=== PATIENT | female | born 1955 | race Caucasian/White ===

== ENCOUNTER 2017-08-16 08:05 | Day surgery (SDC) | payer BC ==
[~2017-08-16 08:05] MED LIST: LACTATED RINGERS 1,000 ML IV SCH
[2017-08-16 08:42] VITALS: RESP 16; TEMP 98.6
[2017-08-16] MEDS ORDERED: LIDOCAINE 1% 20 ML VIAL (10MG/ML) FOR IV START INTRADERMA ONE (08:47)
[2017-08-16] MEDS ORDERED: PROPOFOL 10 MG/ML 20 ML VIAL IV ONE (08:47)
--- NOTE | 2017-08-16 08:57 | P.GSHP ---
History of Present Illness H&P Date: 08/16/17 Chief Complaint: Colon cancer screening Patient here today for colonoscopy. She has not had one previously. She has a sister who has colon polyps. Denies rectal bleeding or melena. No change in bowel habits. Past Medical History Past Medical History: GERD/Reflux History of Any Multi-Drug Resistant Organisms: None Reported Past Surgical History: Adenoidectomy, Cholecystectomy, Tonsillectomy Additional Past Surgical History / Comment(s): SINUS. REMOVAL OF LEAD IN RIGHT HAND. Past Anesthesia/Blood Transfusion Reactions: No Reported Reaction Past Psychological History: No Psychological Hx Reported Smoking Status: Former smoker Past Alcohol Use History: Rare Additional Past Alcohol Use History / Comment(s): SMOKED FOR A COUPLE, QUIT ABOUT 20 YRS, LESS THAN 1PP. Past Drug Use History: None Reported Medications and Allergies Home Medications Medication Instructions Recorded Confirmed Type Aspirin [Adult Low Dose Aspirin EC] 81 mg PO DAILY 08/13/17 08/16/17 History Ibuprofen [Motrin] 200 - 400 mg PO Q6H PRN 08/13/17 08/16/17 History Lisinopril 40 mg PO QAM 08/13/17 08/16/17 History Simvastatin Unknown Dose 1 tab PO HS 08/13/17 08/16/17 History Allergies Allergy/AdvReac Type Severity Reaction Status Date / Time adhesive Allergy Rash/Hives Verified 08/16/17 08:38 Penicillins Allergy Swelling Verified 08/16/17 08:38 Surgical - Exam Vital Signs Temp Pulse Resp BP Pulse Ox 98.6 F 95 16 140/81 97 08/16/17 08:41 08/16/17 08:41 08/16/17 08:41 08/16/17 08:41 08/16/17 08:41 Physical exam: General: Well-developed, well-nourished HEENT: Normocephalic, sclerae nonicteric Abdomen: Nontender, nondistended Extremities: No edema Neuro: Alert and oriented Assessment and Plan (1) Colon cancer screening Narrative/Plan: Will proceed with colonoscopy today. Risks of bleeding and perforation discussed. Current Visit: Yes Status: Acute Code(s): Z12.11 - ENCOUNTER FOR SCREENING FOR MALIGNANT NEOPLASM OF COLON SNOMED Code(s): 167644785
--- NOTE | 2017-08-16 09:15 | P.PCN ---
Date of Procedure: 08/16/17 Procedure(s) Performed: PREOPERATIVE DIAGNOSIS: Colon cancer screening POSTOPERATIVE DIAGNOSIS: Sigmoid colon polyp PROCEDURE: Colonoscopy with biopsy ANESTHESIA: MAC SURGEON: Nirmal Pierre M.D. SPECIMENS: Polyp ENDOSCOPIC PROCEDURE: The patient was placed on the endoscopy table in the left decubitus position. The Olympus colonoscope was inserted into the anus and passed under direct visualization to the base of the cecum. The appendiceal orifice was visualized. From that point the scope was slowly withdrawn inspecting all surfaces carefully. There were no neoplastic inflammatory or polypoid lesions throughout the cecum, ascending, transverse, and descending colon. In the sigmoid colon a small polyp was identified and removed using the cold biopsy forceps. The remainder of the sigmoid and rectum appeared normal. There was no visible diverticulosis seen. Digital rectal examination was normal. The patient was taken to the recovery room in stable condition per anesthesia guidelines. RECOMMENDATIONS: Await biopsy results to determine the timing of the next colonoscopy.
[2017-08-16 09:40] VITALS: BP 128/86; PULSE 78
== END 2017-08-16 09:58 | disposition home or self-care (01) ==
LOC: ORWHC2ENDO 08:05
PROVIDERS: ATTEND Surgery
DX: Z12.11 Encounter for screening for malignant neoplasm of colon (principal); K63.5 Polyp of colon; K21.9 Gastro-esophageal reflux disease without esophagitis; Z83.71 Family history of colonic polyps; Z87.891 Personal history of nicotine dependence; Z79.82 Long term (current) use of aspirin; Z79.899 Other long term (current) drug therapy; Z88.0 Allergy status to penicillin
CPT/HCPCS: 88305; 45380; J2704

== ENCOUNTER → 2019-02-19 | Outpatient (CLI) | payer BC ==
--- NOTE | 2019-02-19 12:32 | BD ---
EXAMINATION TYPE: Axial Bone Density DATE OF EXAM: 02/19/2019 COMPARISON: 07.04.2016 CLINICAL HISTORY: 63 YR OLD FEMALE...ICD-10 CODE: M85.9 DISORDER OF BONE postmenopausal female. Tru ght: 62.4 Weight: 266 FRAX RISK QUESTIONS: NOTHING TO NOTE HERE RISK FACTORS HISTORY OF: Postmenopausal woman: YES AT AGE 55 MEDICATIONS: Additional Medications: BP MEDS, STATIN FOR CHOLESTEROL Additional History: HYPERTENSION, CHOLESTEROL EXAM MEASUREMENTS: Bone mineral densitometry was performed using the [employer]. Bone mineral density as measured about the Lumbar spine is: ----- L1-L4(G/cm2): 1.254 T Score Values are as follows: ----- L1: -1.1 ----- L2: 0.6 ----- L3: 1.4 ----- L4: 1.1 ----- L1-L4: 0.6 Bone mineral density has: Increased 3.0% since study of: 07.04.2016 Bone mineral density about the R hip (g/cm2): 1.125 Bone mineral density about the L hip (g/cm2): 1.096 T Score values are as follows: -----R Neck: -1.1 -----L Neck: -1.6 -----R Total: 0.9 -----L Total: 0.7 Bone mineral density has: Decreased -0.4% since study of: 07.04.2016 FRAX%s: THERE IS A 7.2% CHANCE FOR A MAJOR OSTEOPOROTIC FX AND A 0.6% FOR HIP.....PROBABILITY FOR FX IN 10 YRS TIME IMPRESSION: Osteopenia (T Score between -2.5 and -1) remains present femoral neck level both hips. There remains slightly increased risk of fracture and the patient may be considered for treatment. Re-Screen 2-5 years. NOTE: T-SCORE=SD OF THE YOUNG ADULT MEAN.
--- NOTE | 2019-02-20 11:35 | MM ---
Reason for exam: screening (asymptomatic). Last mammogram was performed 2 years and 8 months ago. History: Patient is postmenopausal and is nulliparous. Physical Findings: A clinical breast exam by your physician is recommended on an annual basis and results should be correlated with mammographic findings. MG Screening Mammo w CAD Bilateral CC and MLO view(s) were taken. Prior study comparison: June 21, 2016, bilateral MG screening mammo w CAD. May 15, 2013, bilateral digital screening mammo w/CAD. There are scattered fibroglandular densities. There is no discrete abnormality. No significant changes when compared with prior studies. ASSESSMENT: Negative, BI-RAD 1 RECOMMENDATION: Routine screening mammogram of both breasts in 1 year.
== END | disposition home or self-care (01) ==
LOC: RADMAMWWP 10:00
PROVIDERS: ATTEND Internal Medicine
DX: Z12.31 Encounter for screening mammogram for malignant neoplasm of breast (principal); M85.851 Other specified disorders of bone density and structure, right thigh; M85.852 Other specified disorders of bone density and structure, left thigh
CPT/HCPCS: 77067; 77080

== ENCOUNTER → 2020-09-16 | Outpatient (CLI) | payer BC ==
--- NOTE | 2020-09-20 12:29 | MM ---
Reason for exam: screening (asymptomatic). Last mammogram was performed 1 year and 7 months ago. History: Patient is postmenopausal and is nulliparous. Family history of breast cancer in sister at age 55. Physical Findings: A clinical breast exam by your physician is recommended on an annual basis and results should be correlated with mammographic findings. MG 3D Screening Mammo W/Cad Bilateral CC and MLO view(s) were taken. Prior study comparison: June 21, 2016, bilateral MG screening mammo w CAD. The breast tissue is almost entirely fat. No significant changes when compared with prior studies. ASSESSMENT: Benign, BI-RAD 2 RECOMMENDATION: Routine screening mammogram of both breasts in 1 year.
== END | disposition home or self-care (01) ==
LOC: RADMAMWWP 09:31
PROVIDERS: ATTEND Internal Medicine
DX: Z12.31 Encounter for screening mammogram for malignant neoplasm of breast (principal)
CPT/HCPCS: 77063; 77067

== ENCOUNTER → 2021-07-04 | Outpatient (CLI) | payer BC ==
--- NOTE | 2021-07-04 23:18 | BD ---
EXAMINATION TYPE: Axial Bone Density DATE OF EXAM: 07/04/2021 COMPARISON: NONE CLINICAL HISTORY: Height: 63 Weight: 267.6 FRAX RISK QUESTIONS: Alcohol (3 or more units per day): no Family History (Parent hip fracture): no Glucocorticoids (More than 3mos): no (Ex: prednisone, prednisolone, methylprednisolone, dexamethasone, and hydrocortisone). History of Fracture in Adulthood: no Secondary Osteoporosis: 1. Type 1 Diabetes: no 2. Hyperthyroidism: no 3. Menopause before 45: no 4. Malnutrition: no 5. Chronic liver disease: no Rheumatoid Arthritis: no Current Tobacco Use: no RISK FACTORS HISTORY OF: Surgery to Spine/Hip(right/left)/Wrist (right/left): no Family History of Osteoporosis: no Active: sometimes Diet low in dairy products/other sources of calcium: no Postmenopausal woman: yes Lost more than 2 inches in height since high school: no MEDICATIONS: lisinopril, simvastatin, calcium, baby aspirin Additional History: EXAM MEASUREMENTS: Bone mineral densitometry was performed using the [employer]. Bone mineral density as measured about the Lumbar spine is: ----- L1-L4(G/cm2): 1.255 T Score Values are as follows: ----- L2: -0.4 ----- L3: 1.0 ----- L4: 0.9 ----- L1-L4: 0.6 Bone mineral density has: decreased -4.4 % since study of: 02.19.2019 Bone mineral density about the R hip (g/cm2): 0.889 Bone mineral density about the L hip (g/cm2): 0.888 T Score values are as follows: -----R Neck: -1.0 -----L Neck: -1.1 -----R Total: 1.2 -----L Total: 0.8 Bone mineral density has: increased 2.3 % since study of: 02.19.2019 IMPRESSION: Osteopenia (T Score between -2.5 and -1). There is slightly increased risk of fracture and the patient may be considered for treatment. Re-Screen 2-5 years. NOTE: T-SCORE=SD OF THE YOUNG ADULT MEAN.
== END | disposition home or self-care (01) ==
LOC: RADBDWWP 16:19
PROVIDERS: ATTEND Obstetrics & Gynecology
DX: M85.88 Other specified disorders of bone density and structure, other site (principal); Z78.0 Asymptomatic menopausal state
CPT/HCPCS: 77080

== ENCOUNTER → 2021-09-05 | Outpatient (CLI) | payer BC ==
--- NOTE | 2021-09-06 07:44 | US ---
EXAMINATION TYPE: US carotid duplex BILAT DATE OF EXAM: 09/05/2021 COMPARISON: NONE CLINICAL HISTORY: I65.23 OCCLUSION AND STENOSIS OF BILATERAL CAROTID. EXAM MEASUREMENTS: RIGHT: Peak Systolic Velocity (PSV) cm/sec ----- Right CCA: 97.0 ----- Right ICA: 113.5 ----- Right ECA: 67.9 ICA/CCA ratio: 1.2 RIGHT: End Diastole cm/sec ----- Right CCA: 23.6 ----- Right ICA: 41.3 ----- Right ECA: 12.2 LEFT: Peak Systolic Velocity (PSV) cm/sec ----- Left CCA: 88.6 ----- Left ICA: 85.6 ----- Left ECA: 133.3 ICA/CCA ratio: 1.0 LEFT: End Diastole cm/sec ----- Left CCA: 26.9 ----- Left ICA: 27.4 ----- Left ECA: 23.4 VERTEBRALS (direction of flow): Right Vertebral: Antegrade Left Vertebral: Antegrade Rhythm: Normal No significant stenosis IMPRESSION: No evidence for hemodynamically significant stenosis. Criteria for Assigning % of Stenosis / Diameter reduction (Estimation based on the indirect measurements of the internal carotid artery velocities (ICA PSV). 1. Normal (no stenosis)=ICA PSV < 125 cm/s: ratio < 2.0: ICA EDV<40 cm/s. 2. Less than 50% stenosis=ICA PSV < 125 cm/s: ratio < 2.0: ICA EDV<40 cm/s. 3. 50 to 69% stenosis=ICA PSV of 125 to 230 cm/s: ration 2.0 ? 4.0: ICA EDV 40-100 cm/s. 4. Greater than 70% stenosis to near occlusion= ICA PSV > 230 cm/s: ratio > 4.0: ICA EDV > 100 cm/s. 5. Near occlusion= ICA PSV velocities may be low or undetectable: variable ratio and ICA EDV. 6. Total occlusion=unable to detect flow.
== END | disposition home or self-care (01) ==
LOC: RADUSWWP 16:19
PROVIDERS: ATTEND Internal Medicine
DX: I65.23 Occlusion and stenosis of bilateral carotid arteries (principal)
CPT/HCPCS: 93880

== ENCOUNTER → 2021-09-26 | Outpatient (CLI) | payer BC ==
--- NOTE | 2021-09-26 11:47 | CT ---
EXAMINATION TYPE: CT urogram wo/w con DATE OF EXAM: 09/26/2021 INDICATION: Abnormal urine cytology CT DLP: 5724.4 mGy.cm Automated Exposure Control for Dose Reduction was Utilized. TECHNIQUE AND CONTRAST: CT scan of the abdomen and pelvis is performed without and with IV Contrast as per CT urogram protoco l, patient injected with 80 mL of Isovue 370. 3-D reconstruction images were performed and reviewed. COMPARISON: None available FINDINGS: 6 mm nonobstructing stone is seen at the lower pole of the right kidney. No other definite radiodense renal, ureteric or urinary bladder calculi. No hydroureter or hydronephrosis. 11 mm calyceal diverti culum is seen at the upper pole of the left kidney. Small left parapelvic renal cysts are also noted with a few parapelvic cysts on the right side. No other definite renal lesion identified. No definite filling defect seen within the renal collectin g system or the opacified ureters. Grossly unremarkable urinary bladder. No gross uterine or adnexal mass. No definite hepatic focal lesion. Previous cholecystectomy. Unremarkable spleen. Fatty infiltration o f the pancreas. Unremarkable adrenals and IVC. Minimal arterial atherosclerotic calcifications. Nini root of mesentery with prominent subcentimeter mesenteric lymph nodes suggestive of a form of mesent dg panniculitis. Unremarkable nondistended stomach, duodenum and small bowel. Scattered uncomplicated colonic diverticulosis. Moderate fecal loading of the colon. Normal appendix. No suspicious lymphadenopathy or sizable ascites. Unremarkable lung bases. L4-5 and L5-S1 facet oste oarthropathy with degenerative changes of the sacroiliac joints. Grade 1 anterolisthesis of L4 over L 5 and L5 over S1. IMPRESSION: 6 mm obstructing stone at the lower pole of the right kidney with 11 mm left upper pole calyceal dive rticulum. Bilateral parapelvic renal cysts without suspicious feature. Grossly unremarkable kidneys o therwise. No other definite urinary lesion identified. Incidental findings as described above.
== END | disposition home or self-care (01) ==
LOC: RADCTMAIN 07:56
PROVIDERS: ATTEND Internal Medicine
DX: N20.0 Calculus of kidney (principal); R82.89 Other abnormal findings on cytological and histological examination of urine
CPT/HCPCS: 82565; 84520; 74178; 36415; 74400; Q9967

== ENCOUNTER 2021-10-24 06:34 | Day surgery (SDC) | payer BC ==
--- NOTE | 2021-10-23 20:10 | P.HPOB ---
History of Present Illness H&P Date: 10/23/21 Chief Complaint: Endometrial thickening This is a 66 y.o. female, 0, who presents for dilatation and curettage with hysteroscopy due to endometrial thickening noted on pelvic ultrasound. The ultrasound was originally ordered for right lower quadrant pain that has since subsided. She denies any vaginal bleeding. Pelvic ultrasound showed uterus measuring 5.7 x 4 x 3.3 cm, with endometrium measuring 12.3 mm with inhomogenous echotexture. She has been medically cleared for surgery by Dr. Quintana. 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 Has not been sexually active. Social Hx: Single. Works at [employer]. Review of Systems Constitutional: Reports night sweats, Denies chills, Denies fever Eyes: denies blurred vision, denies pain Ears, nose, mouth and throat: Denies headache, Denies sore throat Cardiovascular: Denies chest pain, Denies shortness of breath Respiratory: Denies cough Gastrointestinal: Reports abdominal pain (occasional RLQ), Reports bloating, Reports constipation, Denies diarrhea, Denies nausea, Denies vomiting Genitourinary: Reports stress incontinence Menstruation: Reports postmenopausal Musculoskeletal: Reports myalgias Integumentary: Denies pruritus, Denies rash Neurological: Denies numbness, Denies weakness Psychiatric: Denies anxiety, Denies depression Endocrine: Denies fatigue, Denies weight change Past Medical History Past Medical History: Diabetes Mellitus, GERD/Reflux, Hyperlipidemia, Hypertension History of Any Multi-Drug Resistant Organisms: None Reported Past Surgical History: Adenoidectomy, Cholecystectomy, Tonsillectomy Additional Past Surgical History / Comment(s): SINUS. REMOVAL OF LEAD IN RIGHT HAND. Past Anesthesia/Blood Transfusion Reactions: No Reported Reaction Past Psychological History: No Psychological Hx Reported Smoking Status: Former smoker Past Alcohol Use History: Rare Additional Past Alcohol Use History / Comment(s): SMOKED FOR A COUPLE, QUIT ABOUT 20 YRS, LESS THAN 1PP. Past Drug Use History: None Reported - Past Family History Sister(s) Family Medical History: Pulmonary Embolus Medications and Allergies Home Medications Medication Instructions Recorded Confirmed Type Aspirin [Adult Low Dose Aspirin EC] 81 mg PO DAILY 08/13/17 10/19/21 History Ibuprofen [Motrin] 200 - 400 mg PO Q6H PRN 08/13/17 10/19/21 History lisinopriL 40 mg PO QAM 08/13/17 10/24/21 History Simvastatin 40 mg PO HS 10/19/21 10/19/21 History metFORMIN HCL 500 mg PO BID 10/19/21 10/19/21 History Allergies Allergy/AdvReac Type Severity Reaction Status Date / Time adhesive Allergy Rash/Hives Verified 10/24/21 07:18 Penicillins Allergy Swelling Verified 10/24/21 07:18 Exam Osteopathic Statement: *. No significant issues noted on an osteopathic structural exam other than those noted in the History and Physical/Consult. HEENT: within normal limits Heart: regular rate and rhythm Lungs: clear to auscultation bilaterally Abdomen: soft, non-tender Pelvic: uterus difficult to palpate due to patient size, no adnexal masses palpated, non-tender Extremities: negative Ruby's Assessment and Plan (1) Endometrial thickening on ultrasound Current Visit: No Status: Acute Code(s): R93.89 - ABNORMAL FINDINGS ON DX IMAGING OF OTH BODY STRUCTURES SNOMED Code(s): 889994173 Plan: Proceed with dilatation and curettage with hysteroscopy. I have discussed the risks, benefits, and alternative therapies for the above- mentioned procedure and for both sedation/anesthesia as well as necessary blood products administration, if indicated, as they pertain to this patient. The patient has indicated her understanding and acceptance of the risks and procedures discussed.
[~2021-10-24 06:34] MED LIST changes: -LACTATED RINGERS 1,000 ML IV SCH; +Pre Op ABX Message 1 EACH MISC MISCELLANE ONE
[2021-10-24] MEDS ORDERED: LACTATED RINGERS 1,000 ML IV SCH (07:02)
[2021-10-24] MEDS ORDERED: HYDROmorphone 0.5 MG/0.5 ML SYRINGE IVP PRN (07:02)
[2021-10-24] MEDS ORDERED: DEXAMETHASONE SOD PHOSPHATE 4 MG/ML 1 ML VIAL IV ONE (07:02)
[2021-10-24] MEDS ORDERED: ONDANSETRON 4 MG/2 ML VIAL IVP ONE (07:02)
[2021-10-24] MEDS ORDERED: LIDOCAINE 1% (10MG/ML) FOR IV START INTRADERMA PRN (07:02)
[2021-10-24 07:13] LABS: Glucose,Whole Blood 101 mg/dL (75-99)
[2021-10-24] MEDS ORDERED: SUCCINYLCHOLINE CHLORIDE 100 MG/5 ML SYR IV ONE (07:40)
[2021-10-24] MEDS ORDERED: PROPOFOL 10 MG/ML 20 ML VIAL IV ONE (07:40)
[2021-10-24] MEDS ORDERED: MIDAZOLAM 2 MG/2 ML VIAL ONE (07:40)
[2021-10-24] MEDS ORDERED: LIDOCAINE 1% INJ 10MG/ML (20 ML MDV) ONE (07:40)
[2021-10-24] MEDS ORDERED: fentaNYL (PF) 50 MCG/ML 2 ML AMP ONE (07:40)
--- NOTE | 2021-10-24 08:16 | P.OP ---
Date of Procedure: 10/24/21 Preoperative Diagnosis: Endometrial thickening on ultrasound Postoperative Diagnosis: Same Procedure(s) Performed: Dilation and curettage with hysteroscopy Anesthesia: CLAY Surgeon: Tricia Pool Estimated Blood Loss (ml): 5 Pathology: other (Endometrial curettings) Condition: stable Disposition: same day Indications for Procedure: This is a 66 y.o. female, 0, who presents for dilatation and curettage with hysteroscopy due to endometrial thickening noted on pelvic ultrasound. The ultrasound was originally ordered for right lower quadrant pain that has since subsided. She denies any vaginal bleeding. Pelvic ultrasound showed uterus measuring 5.7 x 4 x 3.3 cm, with endometrium measuring 12.3 mm with inhomogenous echotexture. She has been medically cleared for surgery by Dr. Quintana. Operative Findings: Uterus is anteverted and sounded to 7-1/2 cm. No adnexal masses are palpated. Upon hysteroscopy, it appears to be a submucosal fibroid is noted in the right corneal region. There is also noted to be a thin polyp on the left side of the uterus. Otherwise endometrium appears very atrophic. Very scant endometrial curettings are obtained. Description of Procedure: The patient is taken to the operating room where she is placed in dorsal lithotomy position. She is prepped and draped in the normal sterile fashion. Her bladder is drained with a catheter. Examination is performed under anesthesia. Uterus is found to be small, anteverted, with no adnexal masses A ring forcep is used on the posterior vaginal wall to visualize the cervix. The anterior lip of the cervix is grasped with a single-tooth tenaculum. Next the cervix is gently dilated with a hemostat and then a small Mai dilator. Uterus is sounded to 7-1/2 cm. The cervix is then gently dilated further with dilators until a hysteroscope could be passed. Hysteroscopy is performed using normal saline. The above noted findings are made and pictures are taken. Hysteroscope was withdrawn and then a polyp forceps was introduced. A small amount of polypoid type tissue was obtained. Next a small uterine curet was then used to perform uterine curettage until a gritty texture was noted. There was an irregular contour noted on the right fundal region this was a submucosal fibroid. Very scant further tissue was obtained next the single-tooth tenaculum is removed and no bleeding is noted. All other instruments are removed from the vagina. All sponge counts are correct. The patient is then taken to recovery room in stable condition.
[2021-10-24 08:27] VITALS: RESP 16; TEMP 98
[2021-10-24] MEDS ORDERED: KETOROLAC 15 MG/ML 1 ML VIAL IVP ONE (08:36)
[2021-10-24 09:20] LABS: Glucose,Whole Blood 124 mg/dL (75-99)
[2021-10-24 09:42] VITALS: BP 99/65; PULSE 51
== END 2021-10-24 10:31 | disposition home or self-care (01) ==
LOC: OR 06:34
PROVIDERS: ATTEND Obstetrics & Gynecology
DX: N84.0 Polyp of corpus uteri (principal); R93.89 Abnormal findings on diagnostic imaging of other specified body structures; R10.31 Right lower quadrant pain; E11.9 Type 2 diabetes mellitus without complications; K21.9 Gastro-esophageal reflux disease without esophagitis; E66.01 Morbid (severe) obesity due to excess calories; Z68.41 Body mass index [BMI] 40.0-44.9, adult; E78.5 Hyperlipidemia, unspecified; I10 Essential (primary) hypertension; Z87.891 Personal history of nicotine dependence; Z82.49 Family history of ischemic heart disease and other diseases of the circulatory system; Z90.49 Acquired absence of other specified parts of digestive tract; Z98.890 Other specified postprocedural states; Z79.84 Long term (current) use of oral hypoglycemic drugs; Z79.82 Long term (current) use of aspirin; Z79.899 Other long term (current) drug therapy; Z88.0 Allergy status to penicillin; Z91.09 Other allergy status, other than to drugs and biological substances
CPT/HCPCS: 88305; 58558; J2250; J1100; J2405; J2001; J3010; J1885; J0330; J2704; J1170

== ENCOUNTER → 2021-11-01 | Outpatient (CLI) | payer BC ==
--- NOTE | 2021-11-03 08:50 | MM ---
Reason for exam: screening (asymptomatic). Last mammogram was performed 1 year and 2 months ago. History: Patient is postmenopausal and is nulliparous. Family history of breast cancer in sister at age 55. Physical Findings: A clinical breast exam by your physician is recommended on an annual basis and results should be correlated with mammographic findings. MG 3D Screening Mammo W/Cad Bilateral CC and MLO view(s) were taken. Prior study comparison: September 16, 2020, bilateral MG 3d screening mammo w/cad. February 19, 2019, bilateral MG screening mammo w CAD. There are scattered fibroglandular densities. No significant changes when compared with prior studies. ASSESSMENT: Benign, BI-RAD 2 RECOMMENDATION: Routine screening mammogram of both breasts in 1 year.
== END | disposition home or self-care (01) ==
LOC: RADMAMWWP 09:24
PROVIDERS: ATTEND Internal Medicine
DX: Z12.31 Encounter for screening mammogram for malignant neoplasm of breast (principal)
CPT/HCPCS: 77063; 77067

== ENCOUNTER → 2022-06-06 | Outpatient (CLI) | payer BC ==
--- NOTE | 2022-06-06 09:26 | MM ---
Reason for Exam: Clinical finding. Last screening mammogram was performed 8 month(s) ago. Patient History: Menarche at age 14. Patient has no children. Postmenopausal. Sister had breast cancer, age 55. Risk Values: Krystin 5 year model risk: 3.2%. NCI Lifetime model risk: 12.4%. Prior Study Comparison: 12/22/2010 Bilateral Screening Mammogram, [facility]. 05/15/2013 Bilateral Screening Mammogram, [facility]. 06/21/2016 Bilateral Screening Mammogram, [facility]. 02/19/2019 Bilateral Screening Mammogram, [facility]. 09/16/2020 Bilateral Screening Mammogram, [facility]. 11/01/2021 Bilateral Screening Mammogram, [facility]. Tissue Density: There are scattered fibroglandular densities. Findings: Analyzed By CAD. There is occasional scattered benign-appearing round tiny calcification bilaterally redemonstrated. No suspicious new mass or distortion in either breast. Overall Assessment: Benign, BI-RAD 2 Management: Screening Mammogram of both breasts in 1 year. Managed clinically patient's symptoms of resolving rash. Results were given to the patient verbally at the time of exam. Electronically signed and approved by: Surya Haddad M.D.
== END | disposition home or self-care (01) ==
LOC: RADMAMWWP 08:51
PROVIDERS: ATTEND Internal Medicine
DX: N64.59 Other signs and symptoms in breast (principal); Z78.0 Asymptomatic menopausal state; Z80.3 Family history of malignant neoplasm of breast
CPT/HCPCS: 77062; 77066

== ENCOUNTER → 2024-01-03 | Outpatient (CLI) | payer BC ==
--- NOTE | 2024-01-03 10:50 | XR ---
EXAMINATION TYPE: XR KUB DATE OF EXAM: 01/03/2024 Comparison: None Clinical History: 68-year-old female N20.0 CALCULUS OF KIDNEY Findings: 9 mm right renal stone. Clips. Mild stool burden. Nonobstructive bowel gas pattern. Impression: 9 mm right renal stone.
== END | disposition home or self-care (01) ==
LOC: RADXRMAIN 10:20
PROVIDERS: ATTEND Urology
DX: N20.0 Calculus of kidney (principal)
CPT/HCPCS: 74018

== ENCOUNTER → 2024-09-29 | Day surgery (SDC) | payer BC ==
[~2024-09-29] MED LIST changes: +PROPOFOL 10 MG/ML 20 ML VIAL IV ONE; -Pre Op ABX Message 1 EACH MISC MISCELLANE ONE
[2024-09-29 08:41] VITALS: TEMP 98.1
[2024-09-29] MEDS: IV FLUID CONTINUATION 1,000 ML IV ONE (08:49)
[2024-09-29] MEDS: LACTATED RINGERS 1,000 ML IV SCH (08:49)
[2024-09-29] MEDS: LIDOCAINE 1% (10MG/ML) FOR IV START INTRADERMA STA (08:50)
[2024-09-29 08:57] LABS: Glucose,Whole Blood 99 mg/dL (70-110)
--- NOTE | 2024-09-29 08:58 | P.GSHP ---
History of Present Illness H&P Date: 09/29/24 Chief Complaint: Colon cancer screening 69-year-old female here for colonoscopy. Last colonoscopy 7 years ago. No bowel complaints. No family history of colon cancer. She had a polyp that was biopsied that was completely benign last time. Past Medical History Past Medical History: Diabetes Mellitus, GERD/Reflux, Hyperlipidemia, Hypertension History of Any Multi-Drug Resistant Organisms: None Reported Past Surgical History: Adenoidectomy, Cholecystectomy, Tonsillectomy Additional Past Surgical History / Comment(s): SINUS. REMOVAL OF LEAD IN RIGHT HAND. Past Anesthesia/Blood Transfusion Reactions: No Reported Reaction Smoking Status: Former smoker Medications and Allergies Home Medications Medication Instructions Recorded Confirmed Type Aspirin [Adult Low Dose Aspirin EC] 81 mg PO DAILY 08/13/17 09/25/24 History Ibuprofen [Motrin] 200 - 400 mg PO Q6H PRN 08/13/17 09/25/24 History lisinopriL 40 mg PO QAM 08/13/17 09/25/24 History Simvastatin 40 mg PO HS 10/19/21 09/25/24 History metFORMIN HCL 500 mg PO BID 10/19/21 09/25/24 History Calcium Carbonate [Calcium] 1 tab PO DAILY 09/25/24 09/25/24 History Allergies Allergy/AdvReac Type Severity Reaction Status Date / Time adhesive Allergy Rash/Hives Verified 09/29/24 08:30 Penicillins Allergy Swelling Verified 09/29/24 08:30 Surgical - Exam Vital Signs Temp Pulse Resp BP Pulse Ox 98.1 F 92 16 139/66 95 09/29/24 08:34 09/29/24 08:34 09/29/24 08:34 09/29/24 08:34 09/29/24 08:34 Physical exam: General: Well-developed, well-nourished HEENT: Normocephalic, sclerae nonicteric Abdomen: Nontender, nondistended Extremities: No edema Neuro: Alert and oriented Assessment and Plan (1) Colon cancer screening Narrative/Plan: Will proceed with colonoscopy at this time. Current Visit: No Status: Acute Code(s): Z12.11 - ENCOUNTER FOR SCREENING FOR MALIGNANT NEOPLASM OF COLON SNOMED Code(s): 732001402
--- NOTE | 2024-09-29 09:08 | P.PCN ---
Date of Procedure: 09/29/24 Procedure(s) Performed: PREOPERATIVE DIAGNOSIS: Colon cancer screening POSTOPERATIVE DIAGNOSIS: Small rectal polyp PROCEDURE: Colonoscopy with cold biopsy ANESTHESIA: MAC SURGEON: Nirmal Pierre M.D. SPECIMENS: Polyp ENDOSCOPIC PROCEDURE: The patient was placed on the endoscopy table in the left decubitus position. The Olympus colonoscope was inserted into the anus and passed under direct visualization to the base of the cecum. The appendiceal orifice was visualized. From that point the scope was slowly withdrawn inspecting all surfaces carefully. There were no neoplastic inflammatory or polypoid lesions throughout the cecum, ascending, transverse, descending, and sigmoid colon. In the rectum there was a small flat polyp measuring about 5 mm in size. This was completely removed using a single bite with a cold biopsy forceps. There was no visible diverticulosis. The remainder of the rectum was normal. Digital rectal examination was normal. The patient was taken to the recovery room in stable condition per anesthesia guidelines. RECOMMENDATIONS: Await biopsy results. Will contact patient with timing for next colonoscopy.
[2024-09-29 09:33] VITALS: BP 118/83; PULSE 64; RESP 18
== END ==
LOC: ORWHC2ENDO 08:00
PROVIDERS: ATTEND Surgery
DX: Z12.11 Encounter for screening for malignant neoplasm of colon (principal); K62.1 Rectal polyp; E78.5 Hyperlipidemia, unspecified; E11.9 Type 2 diabetes mellitus without complications; I10 Essential (primary) hypertension; Z87.891 Personal history of nicotine dependence; Z79.84 Long term (current) use of oral hypoglycemic drugs; Z79.82 Long term (current) use of aspirin; Z88.0 Allergy status to penicillin
CPT/HCPCS: 88305; 45380; J2704

== ENCOUNTER → 2024-11-24 | Outpatient (CLI) | payer BC ==
--- NOTE | 2024-11-25 07:41 | CA ---
Transthoracic Echo Report Name: Lynette Dickerson Age: 69 Gender: F : 1955 Exam Date: 11/24/2024 12:58 Exam Location: [facility] Ht (in): 64 Wt (lb): 232 Ordering Physician: Sathya Quintana MD Attending/Referring Phys: Sathya Quintana MD Foreign Agent Emily Vigil, LAYA Procedure CPT: Indications: I34.0 NONRHEUMATIC MITRAL (VALVE) INSUFF I65.23 Cardiac Hx: Technical Quality: Fair Contrast 1: Total Dose (mL): Contrast 2: Total Dose (mL): MEASUREMENTS (Male / Female) Normal Values 2D ECHO LV Diastolic Diameter PLAX 5.0 cm 4.2 - 5.9 / 3.9 - 5.3 cm LV Systolic Diameter PLAX 3.0 cm IVS Diastolic Thickness 1.2 cm 0.6 - 1.0 / 0.6 - 0.9 cm LVPW Diastolic Thickness 1.1 cm 0.6 - 1.0 / 0.6 - 0.9 cm LV Relative Wall Thickness 0.5 RV Internal Dim ED PLAX 2.7 cm LA Systolic Diameter LX 3.9 cm 3.0 - 4.0 / 2.7 - 3.8 cm LV Diastolic Volume MOD BP 45.3 cm??? 67 - 155 / 56 - 104 cm??? LV Systolic Volume MOD BP 16.0 cm??? 22 - 58 / 19 - 49 cm??? LV Ejection Fraction MOD BP 64.8 % >= 55 % LV Cardiac Index MOD BP 800.6 cm???/min???m??? LV Diastolic Volume MOD 4C 46.3 cm??? LV Systolic Volume MOD 4C 20.1 cm??? LV Ejection Fraction MOD 4C 56.7 % LV Cardiac Index MOD 4C 717.6 cm???/min???m??? LV Diastolic Length 4C 7.1 cm LV Systolic Length 4C 5.6 cm LV Diastolic Volume MOD 2C 37.3 cm??? LV Systolic Volume MOD 2C 11.4 cm??? LV Ejection Fraction MOD 2C 69.4 % LV Cardiac Index MOD 2C 707.3 cm???/min???m??? LV Diastolic Length 2C 6.0 cm LV Systolic Length 2C 4.9 cm M-MODE Aortic Root Diameter MM 3.1 cm LA Systolic Diameter MM 3.4 cm LA Ao Ratio MM 1.1 AV Cusp Separation MM 1.8 cm DOPPLER Mitral E Point Velocity 72.8 cm/s Mitral A Point Velocity 61.5 cm/s Mitral E to A Ratio 1.2 MV Deceleration Time 264.1 ms MV E' Velocity 7.8 cm/s Mitral E to MV E' Ratio 9.3 TR Peak Velocity 162.0 cm/s TR Peak Gradient 10.5 mmHg FINDINGS Left Ventricle Left ventricular ejection fraction is estimated at 55-60 %.Normal left ventricular systolic function with no obvious regional wall motion abnormalities. Left ventricular cavity size normal. Mildly increased left ventricular wall thickness. Right Ventricle Normal right ventricular size and function. Right ventricular systolic pressure within normal limits. Right Atrium Mild right atrial dilatation. Left Atrium Mildly increased left atrial diameter. Mitral Valve Structurally normal mitral valve. Mild mitral regurgitation. No mitral stenosis. Aortic Valve Trileaflet aortic valve. No aortic valve stenosis or regurgitation. Tricuspid Valve Structurally normal tricuspid valve. mild tricuspid regurgitation. No tricuspid stenosis. Pulmonic Valve Structurally normal pulmonic valve. Trace pulmonic regurgitation. No pulmonic stenosis. Pericardium No pericardial or pleural effusion. Aorta Normal size aortic root and proximal ascending aorta. CONCLUSIONS 1. Normal left ventricular size and systolic function 2. Mild mitral and tricuspid regurgitation Previewed by: Dr. Marcelino Saini MD (Electronically Signed) Final Date: 25 November 2024 07:41
== END | disposition home or self-care (01) ==
LOC: RADECHMAIN 12:53
PROVIDERS: ATTEND Internal Medicine
DX: I08.1 Rheumatic disorders of both mitral and tricuspid valves (principal)
CPT/HCPCS: 93306

== ENCOUNTER → 2024-12-02 | Outpatient (CLI) | payer BC ==
--- NOTE | 2024-12-02 08:47 | US ---
EXAMINATION TYPE: US carotid duplex BILAT DATE OF EXAM: 12/02/2024 COMPARISON: 09/05/21 CLINICAL INDICATION: Female, 69 years old with history of I34.0 NONRHEUMATIC MITRAL (VALVE) INSUFF I6 5.23; mitral valve insufficiency Additional History: I65.- Occlusion/stenosis of specified precerebral artery, specified laterality TECHNIQUE: Grayscale, color Doppler and spectral Doppler evaluation of the bilateral carotid systems and vertebral arteries. Indirect Doppler criteria was utilized. FINDINGS: EXAM MEASUREMENTS: RIGHT: Peak Systolic Velocity (PSV) cm/sec ----- Right CCA: 79.8 ----- Right ICA: 84.4 ----- Right ECA: 72.9 ICA/CCA ratio: 1.1 RIGHT: End Diastole cm/sec ----- Right CCA: 24.8 ----- Right ICA: 43.3 ----- Right ECA: 18.8 LEFT: Peak Systolic Velocity (PSV) cm/sec ----- Left CCA: 68.8 ----- Left ICA: 84.0 ----- Left ECA: 58.1 ICA/CCA ratio: 1.2 LEFT: End Diastole cm/sec ----- Left CCA: 24.8 ----- Left ICA: 41.1 ----- Left ECA: 11.9 VERTEBRALS (direction of flow): Right Vertebral: Antegrade Left Vertebral: Antegrade Rhythm: Normal BAND TEACHER NOTES: No plaque or elevated velocities seen Color Doppler imaging shows patency with blood flow throughout the carotid artery. Spectral waveforms are within normal limits. IMPRESSION: No hemodynamically significant internal carotid artery stenosis on either side. Criteria for Assigning % of Stenosis / Diameter reduction (Estimation based on the indirect measurements of the internal carotid artery velocities (ICA PSV). 1. Normal (no stenosis)=ICA PSV < 180 cm/s: ratio < 2.0: ICA EDV<40 cm/s. 2. Less than 50% stenosis=ICA PSV < 180 cm/s: ratio < 2.0: ICA EDV<40 cm/s. 3. 50 to 69% stenosis=ICA PSV of 180 to 230 cm/s: ration 2.0 ? 4.0: ICA EDV 40-100 cm/s. PSV 125-180 cm/sec and ICA/CCA PSV Ratio ? 2.0 is also consistent with 50-69% stenosis 4. Greater than 70% stenosis to near occlusion= ICA PSV > 230 cm/s: ratio > 4.0: ICA EDV > 100 cm/s. 5. Near occlusion= ICA PSV velocities may be low or undetectable: variable ratio and ICA EDV. 6. Total occlusion=unable to detect flow. [facility], , 12/02/2024 8:45 AM
== END | disposition home or self-care (01) ==
LOC: RADUSWWP 07:30
PROVIDERS: ATTEND Internal Medicine
DX: I34.0 Nonrheumatic mitral (valve) insufficiency (principal)
CPT/HCPCS: 93880

== ENCOUNTER → 2024-12-17 | Outpatient (CLI) | payer BC ==
--- NOTE | 2024-12-17 08:57 | BD ---
EXAMINATION TYPE: Axial Bone Density DATE OF EXAM: 12/17/2024 CLINICAL HISTORY: 69 years old Female. ICD-10 CODE: M85.852 OSTEOPENIA , Additional History: Height: Weight: FRAX RISK QUESTIONS: 3. Menopause before 47: no 56 RISK FACTORS diabetic HISTORY OF: MEDICATIONS: statin, calcium, aspirin, bp meds, metformin EXAM MEASUREMENTS: Bone mineral densitometry was performed using the [employer] System. Bone mineral density as measured about the Lumbar spine is: ----- L1-L4(G/cm2): 1.264 T Score Values are as follows: ----- L1: -0.4 ----- L2: 0.0 ----- L3: 1.3 ----- L4: 1.4 ----- L1-L4: 0.7 Z Score Values are as follows: ----- L1: 0.0 ----- L2: 0.5 ----- L3: 1.8 ----- L4: 1.8 ----- L1-L4: 1.2 Bone mineral density has: Increased 0.7% since study of: 07.04.2021 Bone mineral density about the R hip (g/cm2): 1.100 Bone mineral density about the L hip (g/cm2): 1.082 T Score values are as follows: -----R Neck: -1.3 -----L Neck: -1.9 -----R Total: 0.7 -----L Total: 0.6 Z Score values are as follows: -----R Neck: -0.5 -----L Neck: -1.1 -----R Total: 1.2 -----L Total: 1.1 Bone mineral density has: Decreased -3.9% since study of: 07.04.2021 FRAX%s: The graph provided illustrates a 9.1% chance for a major osteoporotic fx and a 1.2% chance fo r the hips probability for fx in 10 years time. IMPRESSION: Osteopenia (T Score between -2.5 and -1) is now present femoral neck level both hips. There is slightly increased risk of fracture and the patient may be considered for treatment. Re-Screen 2-5 years. NOTE: T-SCORE=SD OF THE YOUNG ADULT MEAN. [facility], , 12/17/2024 8:55 AM
== END | disposition home or self-care (01) ==
LOC: RADBDWWP 12-09 07:41
PROVIDERS: ATTEND Internal Medicine
DX: M85.89 Other specified disorders of bone density and structure, multiple sites (principal); M85.852 Other specified disorders of bone density and structure, left thigh; M85.851 Other specified disorders of bone density and structure, right thigh; Z78.0 Asymptomatic menopausal state
CPT/HCPCS: 77080